=== PATIENT | male | born 1935 | race Caucasian/White ===

== ENCOUNTER 2016-08-24 17:12 | Emergency (ER) | payer MEDICARE, OTHER | END 2016-08-24 20:16 | disposition home or self-care (01) | LOC: D.ER 17:12 | DX: S43.101A Unspecified dislocation of right acromioclavicular joint, initial encounter (principal); V80.010A Animal-rider injured by fall from or being thrown from horse in noncollision accident, initial encounter; Y93.52 Activity, horseback riding; Y92.89 Other specified places as the place of occurrence of the external cause; S80.811A Abrasion, right lower leg, initial encounter ==

== ENCOUNTER 2020-11-06 07:55 | Emergency (ER) | payer MEDICARE, OTHER ==
[~2020-11-06] VITALS: Ht 182.9 cm; Wt 79.5 kg
[2020-11-06 07:58] VITALS: BP 112/64; Ht 182.9 cm; Wt 79.5 kg
[2020-11-06 08:16] LABS: BASOPHILS 0.5 % (0-2); EOSINOPHILS 1.7 % (0-7); HEMATOCRIT 39.8 % (42.0-54.0); HEMOGLOBIN 13.9 g/dL (13.5-17.5); IMMATURE GRANULOCYTES 0.3 % (0-5); LYMPHOCYTE ABS# 2.04 10x3/uL (1.32-3.57); LYMPHOCYTES 34.8 % (15-50); MCH 33.9 pg (26.0-34.0); MCHC 34.9 g/dL (31.0-37.0); MCV 97.1 fL (80.0-100.0); MEAN PLATELET VOLUME 9.4 fL (7.4-10.4); NEUTROPHIL ABS# 2.86 10x3/uL (1.78-5.38); NEUTROPHILS 48.7 % (40-80); PLATELET COUNT 267 10x3/uL (130-400); RDW 14.1 % (11.5-14.5); WBC 5.9 10x3/uL (4.8-10.8)
[2020-11-06 08:38] LABS: ALBUMIN 3.7 g/dL (3.4-5.0); ANION GAP 14.2 mmol/L (8-16); BILIRUBIN - TOTAL 1.36 mg/dL (0.2-1.3); CALCIUM 9.3 mg/dL (8.5-10.1); CARBON DIOXIDE 24.1 mmol/L (21.0-32.0); CREATININE - SERUM 1.1 mg/dL (0.6-1.3); POTASSIUM - SERUM 4.3 mmol/L (3.5-5.1); PROTEIN - SERUM 6.8 g/dL (6.4-8.2)
[2020-11-06 09:34] LABS: BILIRUBIN NEGATIVE (NEGATIVE); KETONE NEGATIVE (NEGATIVE); NITRITE NEGATIVE (NEGATIVE); UROBILINOGEN NORMAL mg/dL (< 2)
[2020-11-06 09:35] LABS: BACTERIA FEW HPF (NONE SEEN); WHITE CELLS - URINE 2 HPF (0-1)
== END 2020-11-06 11:50 | disposition other institution (70) ==
LOC: D.ER 07:55
PROVIDERS: Student in an Organized Health Care Education/Training Program
DX: R53.1 Weakness (principal); W19.XXXA Unspecified fall, initial encounter; Y93.9 Activity, unspecified; Y92.9 Unspecified place or not applicable; R53.81 Other malaise

== ENCOUNTER 2021-01-07 06:23 | Inpatient (IN) | payer MEDICARE, OTHER ==
[~2021-01-07] VITALS: Ht 182.9 cm; Wt 90.9 kg
--- NOTE | 2021-01-07 06:29 | NUR ---
STROKE BAND NUMBER [id number]
--- NOTE | 2021-01-07 06:35 | NUR ---
PT TO ORDERED CT SCAN
[2021-01-07 06:46] LABS: BASOPHILS 0.7 % (0-2); EOSINOPHILS 1.5 % (0-7); HEMATOCRIT 37.5 % (42.0-54.0); HEMOGLOBIN 12.8 g/dL (13.5-17.5); LYMPHOCYTES 35.7 % (15-50); MCH 34.1 pg (26.0-34.0); MCHC 34.3 g/dL (31.0-37.0); MCV 99.6 fL (80.0-100.0); MEAN PLATELET VOLUME 6.8 fL (7.4-10.4); MONOCYTES 13.1 % (2-11); PLATELET COUNT 290 10x3/uL (130-400); RBC 3.76 10x6/uL (4.20-6.10); RDW 14.4 % (11.5-14.5); WBC 6.4 10x3/uL (4.8-10.8)
--- NOTE | 2021-01-07 06:50 | NUR ---
PT RETURNED FROM CT AT THIS TIME.
[2021-01-07 06:54] VITALS: BP 118/70
[2021-01-07 06:58] LABS: CALC OSMOLALITY 268 mosm/kg (275-300); CALCIUM 8.9 mg/dL (8.5-10.1); CARBON DIOXIDE 26.6 mmol/L (21.0-32.0); CHLORIDE - SERUM 100 mmol/L (98-107); CREATININE - SERUM 1.1 mg/dL (0.6-1.3); GLUCOSE 89 mg/dL (74-106); POTASSIUM - SERUM 4.5 mmol/L (3.5-5.1); SODIUM 133 mmol/L (136-145); UREA NITROGEN 23 mg/dL (7-18); eGFR NON AFRICAN AMERICAN 67 mL/min (90-120)
[2021-01-07 07:15] LABS: ALBUMIN 3.8 g/dL (3.4-5.0); ALKALINE PHOSPHATASE 71 U/L (30-120); ALT (SGPT) 23 U/L (10-68); BILIRUBIN - TOTAL 0.99 mg/dL (0.2-1.3); CKMB 2.1 U/L (0.0-3.6); CREATINE KINASE 99 UL (21-232); MAGNESIUM - SERUM 2.2 mg/dL (1.8-2.4); PROTEIN - SERUM 6.6 g/dL (6.4-8.2); THYROID STIMULATING HORMONE 4.28 uIU/mL (0.36-3.74)
[2021-01-07 07:17] LABS: TROPONIN-I < 0.017 ng/mL (0.000-0.060)
[2021-01-07 08:00] VITALS: BP 102/58
--- NOTE | 2021-01-07 08:37 | NUR ---
12 LEAD EKG AND RHYTHM STRIP X [address] P[address] DONE PER ORDER DR[address] IGLESIAS. 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 SHOWN TO NIK, CARDIOLOGY WAIST PRESSER BY DR. IGLESIAS.
[2021-01-07 10:22] LABS: BILIRUBIN NEGATIVE (NEGATIVE); KETONE NEGATIVE mg/dL (< 1+); NITRITE NEGATIVE (NEGATIVE); PH 6.5 (5.0-8.0); UROBILINOGEN NORMAL mg/dL (< 2)
[2021-01-07 10:26] LABS: UDS - AMPHET NEGATIVE QUAL (NEGATIVE); UDS - BARB NEGATIVE QUAL (NEGATIVE); UDS - BENZO NEGATIVE QUAL (NEGATIVE); UDS - COCAINE NEGATIVE QUAL (NEGATIVE); UDS - OPIATE NEGATIVE QUAL (NEGATIVE); UDS - PCP NEGATIVE QUAL (NEGATIVE); UDS - THC NEGATIVE QUAL (NEGATIVE)
--- NOTE | 2021-01-07 11:27 | NUR ---
MEETA, HOSPITALIST YENNI, CALLED FOR DIET ORDER.
[2021-01-07 12:45] VITALS: BP 114/71; Ht 182.9 cm; Wt 90.9 kg
[2021-01-07 15:00] VITALS: BP 125/78
--- NOTE | 2021-01-07 15:15 | NUR ---
TELEMETRY KAILA 2 TYPE 1. HR 53.
[2021-01-07 21:43] VITALS: BP 128/78
[2021-01-08 02:18] VITALS: BP 104/56
[2021-01-08 06:02] LABS: ALBUMIN 4.1 g/dL (3.4-5.0); ALKALINE PHOSPHATASE 70 U/L (30-120); ALT (SGPT) 28 U/L (10-68); BASOPHILS 0.7 % (0-2); CALC OSMOLALITY 269 mosm/kg (275-300); CALCIUM 8.9 mg/dL (8.5-10.1); CARBON DIOXIDE 26.7 mmol/L (21.0-32.0); CHLORIDE - SERUM 97 mmol/L (98-107); CHOL - HDL RATIO 2.5 ratio (2.3-4.9); CHOLESTEROL, TOTAL 160 mg/dL (0-200); CREATINE KINASE 159 UL (21-232); EOSINOPHILS 1.5 % (0-7); GLUCOSE 91 mg/dL (74-106); HDL CHOLESTEROL 65 mg/dL (32-96); HEMATOCRIT 41.6 % (42.0-54.0); HEMOGLOBIN 14.4 g/dL (13.5-17.5); LDL CHOLESTEROL 84 mg/dL (0-100); LDL-HDL RATIO 1.3 ratio (1.5-3.5); LYMPHOCYTES 41.9 % (15-50); MCH 34.4 pg (26.0-34.0); MCHC 34.7 g/dL (31.0-37.0); MCV 99.3 fL (80.0-100.0); MONOCYTES 12.1 % (2-11); NEUTROPHILS 43.8 % (40-80); PLATELET COUNT 332 10x3/uL (130-400); POTASSIUM - SERUM 4.1 mmol/L (3.5-5.1); PROTEIN - SERUM 7.4 g/dL (6.4-8.2); RBC 4.19 10x6/uL (4.20-6.10); RDW 14.5 % (11.5-14.5); SODIUM 134 mmol/L (136-145); TRIGLYCERIDE 58 mg/dL (30-200); WBC 6.8 10x3/uL (4.8-10.8); eGFR NON AFRICAN AMERICAN 75 mL/min (90-120)
[2021-01-08 06:08] LABS: UREA NITROGEN 17 mg/dL (7-18)
[2021-01-08 08:49] VITALS: BP 126/83
--- NOTE | 2021-01-08 12:49 | NUR ---
DC'd home to self care in stable condition via w/c accompanied by personal banker and hospital staff, no s/s of acute distress observed.
== END 2021-01-08 12:49 | disposition home or self-care (01) | DRG 310 ==
LOC: D.ER 06:23 → OBSVTIME 09:10 → D.EDHOLD 09:10 → D.M2 10:26
PROVIDERS: Emergency Medicine; ADMIT Family Medicine; ATTEND Family Medicine
DX: I44.1 Atrioventricular block, second degree (principal); R53.1 Weakness; H91.90 Unspecified hearing loss, unspecified ear

== ENCOUNTER 2021-01-09 06:46 | Emergency (ER) | payer MEDICARE, OTHER ==
[~2021-01-09] VITALS: Ht 182.9 cm; Wt 68.2 kg
[2021-01-09 06:49] VITALS: Ht 182.9 cm; Wt 68.2 kg
[2021-01-09 07:10] LABS: BASOPHILS 0.4 % (0-2); EOSINOPHILS 0.2 % (0-7); HEMATOCRIT 41.9 % (42.0-54.0); HEMOGLOBIN 14.1 g/dL (13.5-17.5); LYMPHOCYTES 15.1 % (15-50); MCH 33.8 pg (26.0-34.0); MCHC 33.7 g/dL (31.0-37.0); MCV 100.4 fL (80.0-100.0); MEAN PLATELET VOLUME 6.9 fL (7.4-10.4); NEUTROPHILS 75.3 % (40-80); PLATELET COUNT 298 10x3/uL (130-400); RBC 4.17 10x6/uL (4.20-6.10); RDW 14.5 % (11.5-14.5)
[2021-01-09 07:13] LABS: WBC 13.3 10x3/uL (4.8-10.8)
[2021-01-09 07:39] LABS: CALC OSMOLALITY 263 mosm/kg (275-300); CALCIUM 9.2 mg/dL (8.5-10.1); CARBON DIOXIDE 24.7 mmol/L (21.0-32.0); CHLORIDE - SERUM 97 mmol/L (98-107); GLUCOSE 103 mg/dL (74-106); POTASSIUM - SERUM 4.3 mmol/L (3.5-5.1); SODIUM 130 mmol/L (136-145); UREA NITROGEN 20 mg/dL (7-18); eGFR NON AFRICAN AMERICAN 75 mL/min (90-120)
[2021-01-09 07:45] LABS: ALBUMIN 4.1 g/dL (3.4-5.0); ALKALINE PHOSPHATASE 75 U/L (30-120); ALT (SGPT) 28 U/L (10-68); APTT 34.1 SECONDS (22.8-39.4); BILIRUBIN - TOTAL 1.99 mg/dL (0.2-1.3); INR 1.26 (0.85-1.17); PROTEIN - SERUM 7.4 g/dL (6.4-8.2); PROTIME 14.7 SECONDS (11.6-15.0)
[2021-01-09 09:45] VITALS: BP 118/94
== END 2021-01-09 09:47 ==
LOC: D.ER 06:46
PROVIDERS: Family Medicine
DX: R41.82 Altered mental status, unspecified (principal); S72.001A Fracture of unspecified part of neck of right femur, initial encounter for closed fracture; D72.829 Elevated white blood cell count, unspecified; M79.10 Myalgia, unspecified site; H11.30 Conjunctival hemorrhage, unspecified eye; W19.XXXA Unspecified fall, initial encounter; Y93.9 Activity, unspecified; Y92.129 Unspecified place in nursing home as the place of occurrence of the external cause